=== PATIENT | male | born 1955 | race Caucasian/White ===

== ENCOUNTER 2017-10-07 07:48 | Emergency (ER) | payer BC ==
[2017-10-07 08:14] VITALS: BP 139/92
--- NOTE | 2017-10-07 08:48 | UC ---
Eye Complaint HPI - HPI Summary HPI Summary: pt felt irritation in R eye last sowmya and this am eye was red and stuck shut and more red. feels itchy and irritated - History of Current Complaint Chief Complaint: UCEye Stated Complaint: EYE IRRITATION Time Seen by Provider: 10/07/17 08:43 Hx Obtained From: Patient Onset/Duration: Sudden Onset Timing: Constant Severity Initially: Mild Severity Currently: Mild Pain Intensity: 3 Aggravating Factor(s): Blinking Associated Signs And Symptoms: Positive: Drainage (Purulent) - Allergies/Home Medications Allergies/Adverse Reactions: Allergies Allergy/AdvReac Type Severity Reaction Status Date / Time No Known Allergies Allergy Verified 10/07/17 08:14 Home Medications: Home Medications Lisinopril 20 mg PO DAILY 10/07/17 [History Confirmed 10/07/17] PMH/Surg Hx/FS Hx/Imm Hx Previously Healthy: Yes Cardiovascular History: Hypertension - Surgical History Surgical History: Yes Surgery Procedure, Year, and Place: cross eye repair as a child - Family History Known Family History: Positive: None - Social History Occupation: Employed Full-time Lives: With Family Alcohol Use: Occasionally Substance Use Type: None Smoking Status (MU): Never Smoked Tobacco Review of Systems Constitutional: Negative Skin: Negative Eyes: Drainage, Eye Redness ENT: Negative Respiratory: Negative Cardiovascular: Negative Neurological: Negative Psychological: Negative All Other Systems Reviewed And Are Negative: Yes Physical Exam Triage Information Reviewed: Yes Appearance: Well-Appearing, No Pain Distress, Well-Nourished Vital Signs: Initial Vital Signs Temp 98.2 F 10/07/17 08:10 Pulse 55 10/07/17 08:10 Resp 18 10/07/17 08:10 BP 139/92 10/07/17 08:10 Pulse Ox 99 10/07/17 08:10 Vital Signs Reviewed: Yes Eyes: Positive: Conjunctiva Inflamed, Discharge - R eye Respiratory Exam: Normal Cardiovascular Exam: Normal Neurological Exam: Normal Psychological Exam: Normal Skin Exam: Normal Eye Complaint Course/Dx - Differential Dx/Diagnosis Differential Diagnosis/HQI/PQRI: Conjunctivitis, Corneal Abrasion Provider Diagnoses: conjunctivitis Discharge - Sign-Out/Discharge Documenting (check all that apply): Discharge/Admit/Transfer - Discharge Plan Condition: Good Disposition: HOME Prescriptions: Ofloxacin 0.3%(Ophth)(Nf) [Ocuflox OPTH 0.3%(NF)] 0.3 % OPHTHALMIC QID 7 Days # 5 ml Patient Education Materials: Conjunctivitis (ED) Referrals: Sixto Arellano MD [Primary Care Provider] - 2 Days (if not improving) Additional Instructions: Use eye drops as prescribed avoid bright lights and frequent screen time - Billing Disposition and Condition Condition: GOOD Disposition: Home
== END 2017-10-07 09:00 | disposition home or self-care (01) ==
LOC: UCEAST 07:48
DX: H10.9 Unspecified conjunctivitis (principal); I10 Essential (primary) hypertension; Z79.899 Other long term (current) drug therapy
CPT/HCPCS: 99202; G0463